=== PATIENT | female | born 1975 | race Caucasian/White ===

== ENCOUNTER 2020-02-20 20:55 | Emergency (ER) | payer SELFPAY ==
[~2020-02-20] VITALS: Ht 157.5 cm; Wt 93.6 kg
[2020-02-20 21:30] VITALS: BP 237/120
--- NOTE | 2020-02-20 21:33 | NUR ---
TO LOBBY A/W BED AMBULATORY
--- NOTE | 2020-02-20 22:28 | NUR ---
TO BED # 12 AMBULATORY
[2020-02-20] MEDS ORDERED: PHENYLEPHRINE 0.5% 15 ML BTL NS ONE (22:55)
--- NOTE | 2020-02-20 23:20 | NUR ---
TO BED 12 FROM LOBBY WITH C/O EPISTAXIS X 2 EPISODES TODAY. DENIES PMH. BP IS ELEVATED AND PT STATES I NEVER GO TO THE .
[2020-02-20] MEDS ORDERED: PHENYLEPHRINE 1% 15 ML BTL NS ONE (23:26)
[2020-02-21] MEDS ORDERED: NITROGLYCERIN 0.4 MG TAB SL ONE (00:35)
--- NOTE | 2020-02-21 00:35 | NUR ---
BP REMAINS ELEVATED. NEW ORDER RECEIVED. PT MEDICATED ORDERED.
--- NOTE | 2020-02-21 00:50 | NUR ---
AMBULATED TO WITH STEADY GAIT, RETURNED TO [facility]
--- NOTE | 2020-02-21 01:20 | NUR ---
BP REMAINS HIGH. DR. RASHEED NOTIFIED, ORDER RECEIVED
--- NOTE | 2020-02-21 01:30 | NUR ---
PT REFUSES ADDITIONAL MEDICATION. CONCERNS REGARDING HIGH BP DISCUSSED. PT CONTINUES TO REFUSE MEDICATION
[2020-02-21] MEDS ORDERED: ENALAPRIL 10 MG TAB PO ONE (01:35)
[2020-02-21 01:40] VITALS: BP 126/149
--- NOTE | 2020-02-21 01:40 | NUR ---
Patient discharged with v/s stable. Written and verbal after care instructions given and explained. Patient verbalized understanding. Ambulatory with steady gait. All questions addressed prior to discharge. Advised to follow up with PMD. ID BAND REMOVED, RX FOR AFRIN AND FLONASE IN POSESSION
== END 2020-02-21 01:40 | disposition home or self-care (01) ==
LOC: MED 20:55
DX: R04.0 Epistaxis (principal); I10 Essential (primary) hypertension
CPT/HCPCS: 99285